=== PATIENT | female | born 1995 | race Caucasian/White ===

== ENCOUNTER 2017-05-24 11:52 | Inpatient (IN) | payer OTHER ==
[~2017-05-24] VITALS: Ht 160 cm; Wt 2.7 kg
[2017-05-24] MEDS ORDERED: PRENATAL 19 TA1 EAC1 PO (12:32)
== END 2017-05-27 13:25 | DRG 766 ==
LOC: LDR 11:52 → OB/GYN 11:52 → LDR 11:58 → OB/GYN 05-25 00:47
PROVIDERS: Obstetrics & Gynecology
PROC: 3E0P7VZ Introduction of Hormone into Female Reproductive, Via Natural or Artificial Opening (ICD-10-PCS; 2017-05-24)
PROC: 4A1HXCZ Monitoring of Products of Conception, Cardiac Rate, External Approach (ICD-10-PCS; 2017-05-24)
PROC: 4A033R1 Measurement of Arterial Saturation, Peripheral, Percutaneous Approach (ICD-10-PCS; 2017-05-24)
PROC: 10D00Z1 Extraction of Products of Conception, Low, Open Approach (ICD-10-PCS; principal; 2017-05-24 22:00)
DX: O64.0XX0 Obstructed labor due to incomplete rotation of fetal head, not applicable or unspecified (principal); O42.12 Full-term premature rupture of membranes, onset of labor more than 24 hours following rupture; Z3A.37 37 weeks gestation of pregnancy; Z37.0 Single live birth

== ENCOUNTER 2019-06-16 07:44 | Inpatient (IN) | payer OTHER ==
[~2019-06-16] VITALS: Ht 160 cm; Wt 96.6 kg
[~2019-06-16 07:44] MED LIST: PRENATAL 19 TA1 EAC1 PO
[2019-06-16] MEDS ORDERED: PRENATAL TABLE1 EAC1 PO (10:05)
== END 2019-06-19 16:27 | DRG 785 ==
LOC: LDR 07:44 → OB/GYN 07:44 → O/R 15:49 → OB/GYN 16:50
PROVIDERS: ADMIT Obstetrics & Gynecology
PROC: 0UB70ZZ Excision of Bilateral Fallopian Tubes, Open Approach (ICD-10-PCS; 2019-06-16)
PROC: 4A1HXCZ Monitoring of Products of Conception, Cardiac Rate, External Approach (ICD-10-PCS; 2019-06-16)
PROC: 4A033R1 Measurement of Arterial Saturation, Peripheral, Percutaneous Approach (ICD-10-PCS; 2019-06-16)
PROC: 10D00Z1 Extraction of Products of Conception, Low, Open Approach (ICD-10-PCS; principal; 2019-06-16 13:00)
DX: O82 Encounter for cesarean delivery without indication (principal); O34.211 Maternal care for low transverse scar from previous cesarean delivery; Z30.2 Encounter for sterilization; Z3A.38 38 weeks gestation of pregnancy; Z37.0 Single live birth